=== PATIENT | female | born 1955 ===

== ENCOUNTER 2021-02-19 09:00 | Day surgery (SDC) | payer OTHER ==
[~2021-02-19 09:00] MED LIST: SYNTHROID125 MCG PO
[2021-02-19] MEDS ORDERED: IBU800 MG PO (14:02)
== END 2021-02-19 18:00 | disposition home or self-care (01) ==
LOC: CIR.AMB 09:00
PROVIDERS: ATTEND Obstetrics & Gynecology Gynecology
DX: N84.0 Polyp of corpus uteri (principal); Z20.822 Contact with and (suspected) exposure to COVID-19